=== PATIENT | male | born 1965 | race Caucasian/White ===

== ENCOUNTER → 2023-11-01 13:41 | Outpatient (BNVA) | payer BC, MEDICAID, SELFPAY | PROVIDERS: Family Provider Nurse Practitioner Family; PCP Family Medicine Adult Medicine; Visit Provider Family Medicine Adult Medicine | DX: I10 Essential (primary) hypertension (principal); R29.898 Other symptoms and signs involving the musculoskeletal system; M21.941 Unspecified acquired deformity of hand, right hand; M21.942 Unspecified acquired deformity of hand, left hand | CPT/HCPCS: 80053; 84443; 85025; 85651; 86140; 86431; G0103 ==

== ENCOUNTER 2023-11-08 14:30 | Outpatient (CLI) | payer BC, MEDICAID, SELFPAY ==
--- NOTE | 2023-11-08 15:00 | US_ITS ---
WS: [id number] THYROID ULTRASOUND HISTORY: TSH low COMPARISON: None available. Right lobe: 3.9 cm x 2.7 cm x 5.1 cm (w x ap x l). Volume: 25.5 cm3. Enlarged multinodular thyroid. Cystic and solid components. No discrete nodules are identified. The e ntire gland is nodular with mild increased vascularity. No echogenic foci. Left lobe: 3.4 cm x 3.7 cm x 6.2 cm (w x ap x l). Volume: 37.5 cm3. Enlarged multinodular thyroid. Cystic and solid components. No well-formed discrete nodules. Minimal increased vascularity. Isthmus: 0.5 cm. IMPRESSION: Multilocular enlarged thyroid. There is no one discrete nodule that appears more concerning than anot her. No echogenic foci.
== END 2023-11-08 14:31 | disposition home or self-care (01) ==
LOC: RAD 14:30
PROVIDERS: Family Provider Nurse Practitioner Family; PCP Family Medicine Adult Medicine; Visit Provider Family Medicine Adult Medicine
DX: R79.89 Other specified abnormal findings of blood chemistry (principal); I10 Essential (primary) hypertension; E04.2 Nontoxic multinodular goiter
CPT/HCPCS: 76536

== ENCOUNTER → 2024-01-31 13:31 | Outpatient (BNVA) | payer BC, MEDICAID, SELFPAY | PROVIDERS: Family Provider Nurse Practitioner Family; PCP Family Medicine Adult Medicine; Visit Provider Family Medicine Adult Medicine | DX: D50.9 Iron deficiency anemia, unspecified (principal); E61.1 Iron deficiency; R79.89 Other specified abnormal findings of blood chemistry | CPT/HCPCS: 84439; 84443; 85025 ==

== ENCOUNTER 2024-05-19 12:43 | Outpatient (CLI) | payer BC, MEDICAID, SELFPAY ==
--- NOTE | 2024-05-19 13:02 | XR_ITS ---
WS: [id number] XR knee LT 3V* [id number] REASON FOR EXAM: KNEE JOINT PAIN FINDINGS: No fracture or focal bone lesion. Minimal narrowing of the medial and patellofemoral joint spaces with mild subchondral sclerosis and m inimal osteophytosis. XR/XR knee LT 3V* [id number] IMPRESSION: Minimal osteoarthritis
--- NOTE | 2024-05-19 13:02 | XR_ITS ---
WS: [email or web address] XR hand RT min 3V* [id number] REASON FOR EXAM: ARTHRITIS FINDINGS: No fracture or focal bone lesion. No periosteal reaction. There is deformity associated with lucenc y with sclerotic margins in the distal proximal phalange ease of the first through the fifth fingers that is very symmetric and nearly identical in appearance. In retrospect similar but less striking fi ndings are seen in the Mild narrowing of the joint space with mild chondral sclerosis and minimal osteophytosis in the DIP j oints of the second through the fourth fingers. Similar arthropathic change in the joints of the thum b. There is deformity associated with a lucency with sclerotic margins in the distal proximal phalange ease of the first through the fifth fingers that is very symmetric and identical to each other. In r etrospect the same findings are seen in the left hand. Potentially these could represent erosive samaniego ges associated with Chika's nodes of the osteoarthritis. Less likely they are synovial based arthr opathy due to the symmetry and identical appearances. XR/XR hand RT min 3V* [id number] IMPRESSION: Mild osteoarthritis of the right hand with changes at the PIP joints (left hand as well) as above.
--- NOTE | 2024-05-19 13:02 | XR_ITS ---
WS: [email or web address] XR hand LT min 3V* [id number] REASON FOR EXAM: ARTHRITIS FINDINGS: No fracture or focal bone lesion. No periosteal reaction. No bony erosions. Mild joint space narrowing with mild subchondral sclerosis in the DIP joints of the second and third fingers and the thumb. Similar arthropathy in the metacarpal phalangeal and carpometacarpal joint of the thumb. XR/XR hand LT min 3V* [id number] IMPRESSION: Mild osteoarthritis.
--- NOTE | 2024-05-19 13:02 | XR_ITS ---
WS: [email or web address] XR knee RT 3V* [id number] REASON FOR EXAM: KNEE JOINT PAIN FINDINGS: No fracture or focal bone lesion. Moderate narrowing of the medial knee joint space with moderate subchondral sclerosis and osteophytos is. The lateral knee joint space is intact and well preserved. Mild to moderate narrowing of the patellofemoral joint space with mild subchondral sclerosis of the p atella. Opposing osteophytes of the femoral condyles. XR/XR knee RT 3V* [id number] IMPRESSION: Mild to moderate osteoarthritis of the right knee as above.
== END 2024-05-19 12:44 | disposition home or self-care (01) ==
LOC: RAD 12:46
PROVIDERS: Family Provider Nurse Practitioner Family; PCP Family Medicine Adult Medicine; Visit Provider Family Medicine
DX: M17.11 Unilateral primary osteoarthritis, right knee (principal); M25.761 Osteophyte, right knee; R93.7 Abnormal findings on diagnostic imaging of other parts of musculoskeletal system
CPT/HCPCS: 73130; 73562

== ENCOUNTER 2024-06-23 07:53 | Outpatient (CLI) | payer BC, MEDICAID, SELFPAY ==
--- NOTE | 2024-06-23 08:48 | NM_ITS ---
WS: [id number] NUCLEAR MEDICINE 24 HOUR I-123 THYROID UPTAKE INDICATION: Thyroid goiter TECHNIQUE: I-123 24 HOUR THYROID UPTAKE WITH PLANAR IMAGING. 149 [facility] MIGNON 123 COMPARISON: Ultrasound 11/08/2023 FINDINGS: Normal 24-hour uptake 25.93% Enlarged slightly heterogeneous thyroid with nodularity. This is concordant with the recent ultrasoun d 11/08/2023. Several nodules with increased activity in the LEFT and RIGHT thyroid. Slightly photopen ic nodule in the RIGHT inferior medial thyroid. Recommend continued annual ultrasound surveillance.. NORMAL 24H THRYOID UPTAKE 8-35% NM/NM thyroid uptake multi [id number] IMPRESSION: Normal 24-hour uptake 25.93%
== END 2024-06-23 07:54 | disposition home or self-care (01) ==
LOC: RAD 07:55
PROVIDERS: Family Provider Nurse Practitioner Family; PCP Family Medicine; Visit Provider Family Medicine
DX: E03.9 Hypothyroidism, unspecified (principal); E04.2 Nontoxic multinodular goiter
CPT/HCPCS: 78014; A9516